=== PATIENT | male | born 1945 | race Caucasian/White ===

== ENCOUNTER 2024-06-15 09:42 | Emergency (ER) | payer MEDICARE, OTHER, SELFPAY ==
[2024-06-15 09:57] VITALS: BP 170/94
--- NOTE | 2024-06-15 11:22 | ED.MUSCINJ ---
HPI-Injury
General
Chief Complaint: Soft Tissue Injury
Source: patient
Exam Limitations: none
Time Seen by Provider: 06/15/24 11:10
Nursing documentation reviewed up to this point in time: agreed with
History of Present Illness-Injury
Initial Injury comments:
78-year-old male with no significant past medical history states he slipped in his bathroom last evening and braced himself with his right hand describing a FOOSH injury. Denies any other injury.
Past History
Past History
ED Past Medical History: None
ED Past Surgical History: Cholecystectomy and Tonsilectomy
Social History
Tobacco: Non-smoker
Personal:
Living: with family
Employment: Retired
Family History
Family History: Negative Diabetes, Hypertension or CAD
Review of Systems
Review of Systems
Allergies reviewed?: Yes
All Other Systems: ROS reviewed and negative except as documented in HPI and ROS
Respiratory: Denies trouble breathing
Cardiac: Denies chest pain
ABD/GI: Denies nausea
Musculoskeletal: Reports other (pain right wrist); Denies neck pain or back pain
Skin: Reports no symptoms
Neurological: Reports no symptoms
Musculoskeletal Injury Exam
Musculoskeletal Injury Exam
Right Wrist:
Pain with Movement?: Moderate
Tender to palpation?: Moderate
Soft tissue swelling?: Mild
External deformity and angulation?: None
Strain- Sprain- Tear (Connective tissue injury)?: Moderate
Joint instability?: No
Malalignment/deformity?: No
Range of motion: Limited
Distal skin color and temperature: normal-warm & good color
Capillary Refill: normal
Normal distal neurovascular exam?: Yes
Phy Exam
Physical Exam
Physical Exam:
PHYSICAL EXAMINATION:
General: no apparent distress, not acutely ill
Neuro: alert and oriented.
Psychiatric: well kept. interactive and cooperative
Musculoskeletal: Moves with ease
Skin: Warm, pink.
Injury Course
Orders/Labs/Results
Orders:
Orders
06/15/24 09:48
Wrist, Right 3 Views [CR Wrist - Right Min 3 Views] Urgent
Comment:
Reason For Exam: FOOSH injury
06/15/24 11:24
[place] Wrist Right-Tx ONCE
MDM/Problems Addressed
MDM/Problems Addressed:
78-year-old male with no significant past medical history states he slipped in his bathroom last evening and braced himself with his right hand describing a FOOSH injury. Denies any other injury.
X-ray right wrist reveals a an avulsion fracture of the cuboid
[place] splint applied
Referred to orthopedics
*Critical Care Note
Total Time (30-74mins, 75-104mins- exclusive of procedures): Not Applicable
ED Attending Note
-
Portions of this chart may have been created with voice recognition software.� Occasional wrong word or��sound alike� substitutions may have occurred due to the inherent limitations of voice recognition software.
Discharge Plan
Departure
Patient Disposition: Home (Routine Discharge)
Date of Disposition: 06/15/24
Time of Disposition: 11:39
Patient with high blood pressure during this ER visit?: No
Condition: Good
Discharge Problem:
Avulsion fracture of right wrist
Instructions: Wrist Fracture
Prescriptions:
No Action
tamsulosin 0.4 MG capsule
0.4 mg PO DAILY Qty: 30 0RF
finasteride 5 MG tablet
5 mg PO DAILY
cephalexin 500 MG capsule
500 mg PO QID Qty: 40 0RF
Rx Instructions:
continue for 10 days
naproxen 500 MG tablet
500 mg PO BID Qty: 30 0RF
cyclobenzaprine 10 MG tablet
5 mg PO TID Qty: 10 0RF
albuterol sulfate [Proventil HFA] 90 MCG/PUFF HFA aerosol inhaler
2 puff inhalation Q4HPRN PRN (Reason: shortness of breath, cough) Qty: 1 0RF
Referrals:
Travis Marquez MD [Active] - Next open appointment
UNKNOWN - PT DOES,NOT KNOW [Family Provider] -
Activity Restrictions/Additional Instructions:
As we discussed, while you are resting, you may open the splint and apply cold compress 20 minutes off and on today and tomorrow to minimize swelling.
Otherwise, keep the splint on until you see the orthopedic doctor for further instructions.
Tylenol or ibuprofen as needed for pain
Call the orthopedic doctors office tomorrow and make an appointment for next week
Interventions
Interventions:
*Risk Screen - Suicide Last Done: 06/15/24 09:57
*Neglect/Abuse Screening Last Done: 06/15/24 11:41
*Nursing Disposition Last Done: 06/15/24 12:04
ED-Musculoskeletal Assessment Last Done: 06/15/24 11:41
ED-Skin Assessment Last Done: 06/15/24 11:41
Discharge Date and Time
Discharge Date/Time: 06/15/24 12:05
Print Language: BULGARIAN
== END 2024-06-15 12:05 | disposition home or self-care (01) ==
LOC: EMR 09:42
PROVIDERS: EMERGENCY PHYSICIAN Emergency Medicine
DX: S62.101A Fracture of unspecified carpal bone, right wrist, initial encounter for closed fracture (principal); W01.0XXA Fall on same level from slipping, tripping and stumbling without subsequent striking against object, initial encounter; Y92.002 Bathroom of unspecified non-institutional (private) residence as the place of occurrence of the external cause; Z90.49 Acquired absence of other specified parts of digestive tract
CPT/HCPCS: 99283; 29125; 73110

== ENCOUNTER 2025-05-28 16:22 | Inpatient (IN) | payer MEDICARE, OTHER, SELFPAY ==
[2025-05-28 13:21] VITALS: BP 164/103
[2025-05-28 13:36] LABS: Hematocrit 44.6 % (39.0-52.0); Hemoglobin 16.2 g/dL (13.0-18.0); Mean Corp Hgb Conc. 36.3 g/dL (33.0-37.0); Mean Corpuscular Volume 88.3 fL (80.0-94.0); Nucleated Red Blood Cells % 0 % (-); Platelet Count 202 10^3/uL (130-400); Red Cell Dist. Width 12.4 % (11.5-14.5)
[2025-05-28 13:45] LABS: INR 1.05; PT 13.9 Sec (11.4-14.6)
[2025-05-28 13:46] LABS: APTT 27.9 Sec (23.4-35.0)
[2025-05-28 13:52] LABS: ALT (SGPT) 36 U/L (0-50); AST (SGOT) 34 U/L (17-59); Albumin 4.2 g/dl (3.5-5.0); Alkaline Phosphatase 93 U/L (38-126); Blood Urea Nitrogen 16 mg/dl (9-20); Calcium 9.0 mg/dl (8.4-10.2); Carbon Dioxide 26 mmol/L (22-30); Chloride 101 mmol/L (98-107); Glucose 101 mg/dl (70-99); Potassium 4.2 mmol/L (3.5-5.1); Sodium 133 mmol/L (135-145); Total Protein 6.9 g/dl (6.3-8.2); eGFR > 60.00
--- NOTE | 2025-05-28 14:45 | ED.GENMED ---
History of Present Illness
<Basil Scott PA-C - Last Filed: 05/28/25 18:45>
General
Chief Complaint: Fall
Time Seen by Provider: 05/28/25 14:32
History of Present Illness
History of Present Illness:
79-year-old male presents to the emergency department for evaluation of right hip pain and mechanical fall. He tripped in his driveway and landed on his buttocks. He states he did strike his head very gently but denies any headache at this time.
Does not take any anticoagulants or antiplatelets. Has any distal paresthesias; no chest pain or shortness of breath.
Past History
<Basil Scott PA-C - Last Filed: 05/28/25 18:45>
Past History
ED Past Medical History: None
ED Past Surgical History: Cholecystectomy and Tonsilectomy
Social History
Tobacco: Non-smoker
Personal:
Living: with family
Employment: Retired
Family History
Family History: Negative Diabetes, Hypertension or CAD
Review of Systems
<Basil Scott PA-C - Last Filed: 05/28/25 18:45>
Review of Systems
Allergies reviewed?: Yes
All Other Systems: ROS reviewed and negative except as documented in HPI and ROS
Phy Exam
<Basil Scott PA-C - Last Filed: 05/28/25 18:45>
Physical Exam
Physical Exam:
GEN: Well appearing, NAD, WDWN
HEENT: Normocephalic and atraumatic, oral mucosa moist, no scleral icterus
Cardiac: Regular rate
Lung: No respiratory distress, no tachypnea
MSK: Shortening and external rotation of the right lower extremity, strong right dorsalis pedis pulse, intact sensation
Skin: Good color, no pallor or jaundice, no rashes
Neuro: AO x3, cranial nerves II through XII grossly intact, moves all extremities freely
Psych: Calm, cooperative
Course
<Basil Scott PA-C - Last Filed: 05/28/25 18:45>
Orders/Labs/Results
Orders:
Orders
05/28/25 Lunch
Regular
At Your Request: Full Participation
05/28/25 13:20
Hip, Right 2-3 Views [CR Hip - RT w/wo Pel 2-3 Vw*] Urgent
Comment:
Reason For Exam: injury, pain
Include a pelvis x-ray?: Yes
05/28/25 13:28
Type+Screen Urgent
Complete Blood Count/With Diff Urgent
Comprehensive Metabolic Panel Urgent
PTT Urgent
Prothrombin Time Urgent
05/28/25 15:18
Admit/Transfer Patient As Directed
Co-Sign Provider:
Level of Care: Inpatient admission
Assign to:: Orthopedics
Physician / Group: hospitalist
Diagnosis: Right femur fracture
Reason for Hospitalization: Right femur fracture
Expected length of stay greater than two midnights?: Yes
ELOS- Estimated Length of Stay in days: 3
I certify the patient meets the requirements for IP care: Yes
PRN Pain Medication Management As Directed
May give lesser potent ordered pain med per pt: Yes
preference::
Protocol:: Medication orders for pain may be administered in a
manner that supports deferring to patient preference
when the pt is:
- Requesting an ordered lesser potent pain medication.
Least to most potent pain medications are defined
as: acetaminophen < NSAID < tramadol < opioids
(morphine, oxycodone, hydromorphone).
- Requesting a lesser dose of the same medication IF
ORDERED.
- Requesting a less intrusive route of administration
if both routes are prescribed by the provider (PO <
IV).
05/28/25 15:19
Code Status As Directed
Resuscitation Status: Full Code
05/28/25 17:50
Acetaminophen [Tylenol/Feverall] 650 mg RECTAL Q4HPRN PRN
Bisacodyl [Dulcolax] 10 mg RECTAL [id number] PRN
Docusate W/Senna [Senokot-S] 1 tablet PO BIDPRN PRN
HYDROmorphone [Dilaudid] 0.5 mg IV Q4HPRN PRN
Ibuprofen [Motrin] 400 mg PO Q6HPRN PRN
Lorazepam [Ativan] 0.5 mg IV Q8HPRN PRN
Polyethylene Glycol Powder [Miralax] 17 grams PO DAILYPRN PRN
05/28/25 17:50
Activity As Directed
Activity Level: Bedrest
Bladder Scan As Directed
Follow Bladder Retention/Intermittent Cath Algorithm?: Yes
PRN if no void in __ hours: 6
Frequency: Per Retention Algorithm
If Bladder Scan Result >: 400
then:: Straight cath
Compression Sleeves [Pneumatic Compression Sleeves] As Directed
Type: Knee high
Straight Cath As Directed
Frequency: Per Retention Algorithm
Additional Instructions: straight cath as needed per acute urinary retention algorithm for 24 hrs
Additional Instructions: for bladder scan greater than 400 mL
Vital Signs As Directed
Frequency: Per unit guidelines
DX Deep Vein Thrombosis Video Routine
05/29/25 06:00
Complete Blood Count/With Diff IN AM
Comprehensive Metabolic Panel IN AM
Abnormal Lab Results
05/28/25
13:28
MCH 32.1 H pg
(27.0-31.0)
Sodium 133 L mmol/L
(135-145)
Glucose 101 H mg/dl
(70-99)
05/28/25 13:28
05/28/25 13:28
Vital Signs
Initial and Last Documented VS:
Initial Vital Signs
Temp Pulse Resp BP Pulse Ox
98.1 F 79 22 164/103 100
05/28/25 13:21 05/28/25 13:21 05/28/25 13:21 05/28/25 13:21 05/28/25 13:21
Last Documented Vital Signs
Temp Pulse Resp BP Pulse Ox
98.5 F 91 18 169/97 99
05/28/25 18:00 05/28/25 18:00 05/28/25 18:00 05/28/25 18:00 05/28/25 18:00
<Reggie Talbert MD - Last Filed: 05/28/25 15:45>
Orders/Labs/Results
Orders:
Orders
05/28/25 Lunch
Regular
At Your Request: Full Participation
05/28/25 13:20
Hip, Right 2-3 Views [CR Hip - RT w/wo Pel 2-3 Vw*] Urgent
Comment:
Reason For Exam: injury, pain
Include a pelvis x-ray?: Yes
05/28/25 13:28
Type+Screen Urgent
Complete Blood Count/With Diff Urgent
Comprehensive Metabolic Panel Urgent
PTT Urgent
Prothrombin Time Urgent
05/28/25 15:18
Admit/Transfer Patient As Directed
Co-Sign Provider:
Level of Care: Inpatient admission
Assign to:: Orthopedics
Physician / Group: hospitalist
Diagnosis: Right femur fracture
Reason for Hospitalization: Right femur fracture
Expected length of stay greater than two midnights?: Yes
ELOS- Estimated Length of Stay in days: 3
I certify the patient meets the requirements for IP care: Yes
PRN Pain Medication Management As Directed
May give lesser potent ordered pain med per pt: Yes
preference::
Protocol:: Medication orders for pain may be administered in a
manner that supports deferring to patient preference
when the pt is:
- Requesting an ordered lesser potent pain medication.
Least to most potent pain medications are defined
as: acetaminophen < NSAID < tramadol < opioids
(morphine, oxycodone, hydromorphone).
- Requesting a lesser dose of the same medication IF
ORDERED.
- Requesting a less intrusive route of administration
if both routes are prescribed by the provider (PO <
IV).
05/28/25 15:19
Code Status As Directed
Resuscitation Status: Full Code
05/28/25 17:50
Acetaminophen [Tylenol/Feverall] 650 mg RECTAL Q4HPRN PRN
Bisacodyl [Dulcolax] 10 mg RECTAL [id number] PRN
Docusate W/Senna [Senokot-S] 1 tablet PO BIDPRN PRN
HYDROmorphone [Dilaudid] 0.5 mg IV Q4HPRN PRN
Ibuprofen [Motrin] 400 mg PO Q6HPRN PRN
Lorazepam [Ativan] 0.5 mg IV Q8HPRN PRN
Polyethylene Glycol Powder [Miralax] 17 grams PO DAILYPRN PRN
05/28/25 17:50
Activity As Directed
Activity Level: Bedrest
Bladder Scan As Directed
Follow Bladder Retention/Intermittent Cath Algorithm?: Yes
PRN if no void in __ hours: 6
Frequency: Per Retention Algorithm
If Bladder Scan Result >: 400
then:: Straight cath
Compression Sleeves [Pneumatic Compression Sleeves] As Directed
Type: Knee high
Straight Cath As Directed
Frequency: Per Retention Algorithm
Additional Instructions: straight cath as needed per acute urinary retention algorithm for 24 hrs
Additional Instructions: for bladder scan greater than 400 mL
Vital Signs As Directed
Frequency: Per unit guidelines
DX Deep Vein Thrombosis Video Routine
05/29/25 06:00
Complete Blood Count/With Diff IN AM
Comprehensive Metabolic Panel IN AM
Abnormal Lab Results
05/28/25
13:28
MCH 32.1 H pg
(27.0-31.0)
Sodium 133 L mmol/L
(135-145)
Glucose 101 H mg/dl
(70-99)
05/28/25 13:28
05/28/25 13:28
Vital Signs
Initial and Last Documented VS:
Initial Vital Signs
Temp Pulse Resp BP Pulse Ox
98.1 F 79 22 164/103 100
05/28/25 13:21 05/28/25 13:21 05/28/25 13:21 05/28/25 13:21 05/28/25 13:21
Last Documented Vital Signs
Temp Pulse Resp BP Pulse Ox
98.5 F 91 18 169/97 99
05/28/25 18:00 05/28/25 18:00 05/28/25 18:00 05/28/25 18:00 05/28/25 18:00
<Basil Scott PA-C - Last Filed: 05/28/25 18:45>
MDM/Problems Addressed
MDM/Problems Addressed:
Patient readmitted to the hospitalist service with orthopedic consultation for intervention on the right hip fracture
<Basil Scott PA-C - Last Filed: 05/28/25 18:45>
*Pulse Oximetry
SaO2: 97
Oxygen Mode of Delivery: Room air
Patient hypoxic: no
*Critical Care Note
Total Time (30-74mins, 75-104mins- exclusive of procedures): Not Applicable
ED Attending Note
<Basil Scott PA-C - Last Filed: 05/28/25 18:45>
-
Portions of this chart may have been created with voice recognition software.� Occasional wrong word or��sound alike� substitutions may have occurred due to the inherent limitations of voice recognition software.
<Reggie Talbert MD - Last Filed: 05/28/25 15:45>
ED Attending Note
Patient seen and examined by attending physician: Yes
ED Attending Note:
Patient presents to ED secondary to persistent right hip pain, after fall on his driveway this afternoon. Patient states that he was closing his trunk door on the street, when he lost balance, and fell backwards, landing on his right hip.
Secondary to pain, patient was unable to stand up. Denies any other injuries from the fall. Denies loss of sensation or weakness. Patient does not take any blood thinning medication. In fact, patient states that he has not seen his primary care
physician for some time. Denies recent illness.
Physical Exam
General: mild painful distress, not acutely ill. afebrile
Head: nc/at. eomi
Neck: supple. normal range of motion.
Heart: s1/s2 regular rate and rhythm
Lungs: no acute respiratory distress. clear bilaterally
Abdomen: normal bowel sounds. not tender.
Neuro: alert and oriented x 3. no focal neurological deficits
Skin: no rash
Psychiatric: well kept. interactive and cooperative
Extremities: diffuse right hip tenderness, along with external rotation.
History, exam, and x-ray consistent with right hip fracture. Patient will be admitted for further evaluation and treatment. At this time, patient does not wish to receive any pain medication. Patient remains neurovascularly intact.
On-call orthopedic surgery () notified via [place] text.
Discharge Plan
Departure
Patient Disposition: Admit
Date of Disposition: 05/28/25
Time of Disposition: 14:46
Admit to: Med/Surg
Presentation/result/management discussed w/ accepting MD/DO: Hospitalist
Discharge Problem:
Closed fracture of neck of right femur
Interventions
Interventions:
*Risk Screen - Suicide Last Done: 05/28/25 13:16
*General Assessment Last Done: 05/28/25 13:16
*Neglect/Abuse Screening Last Done: 05/28/25 13:16
*ED COVID-19 Vaccine History Last Done: 05/28/25 13:16
*ED Influenza Vaccine History Last Done: 05/28/25 13:16
[facility] Fall Risk Assessment Tool Last Done: 05/28/25 13:19
*Nursing Disposition Last Done: 05/28/25 17:45
ED-Musculoskeletal Assessment Last Done: 05/28/25 13:18
ED- Neurological Assessment Last Done: 05/28/25 13:18
ED-Skin Assessment Last Done: 05/28/25 13:18
Discharge Date and Time
Discharge Date/Time: 05/28/25 17:45
[2025-05-28 14:57] VITALS: BP 159/88
--- NOTE | 2025-05-28 15:04 | W.PN.UPDATE ---
Update Note
Progress Note Update
This note serves as an addendum to the H&P by machine feeder raw stock MARY CARMEN�
[id number]
HPI�
79M Non smoker HX BPH, cholecystectomy and Tonsilectomysee at ER
- for evaluation of right hip pain s/p mechanical fall
- tripped in his driveway and landed on his buttocks.
- he did strike his head very gently but denies any headache at this time.
- Does not take any anticoagulants or antiplatelets.
- no chest pain or shortness of breath.
PHX: NO DM, NO IA
ROS
change of BW habit
Non compliance Finasteride
Relevant VS
Vital Signs
Temp Pulse Resp BP Pulse Ox
98.1 F 72 20 164/103 97
05/28/25 13:21 05/28/25 14:00 05/28/25 14:00 05/28/25 13:21 05/28/25 14:47
PE
Gen: anxious
HEENT: anicteric
Neck: supple
Lungs:CTA
Cor: RRR
Abdomen:�centrla obesity , benign exam ( soft , NT , NG , NRT )
EYEGLASS FRAMES POLISHER: AAO3, NFND
MS: shortening and external rotation of the right lower extremity, strong right dorsalis pedis pulse, intact sensation
Psych: anxious
Relevant Data
05/28/25
13:28
WBC 5.4
Hgb 16.2
Plt Count 202
INR 1.05
Sodium 133 L
BUN 16
Creatinine 0.9
eGFR > 60.00
Rt Hip XR:
fracture through the right femoral neck.
Distal fragment is displaced superiorly and laterally.
The femoral head remains aligned with the acetabulum.
The left hip appears aligned.
There are mild degenerative changes involving both hips and the lower lumbar spine.
NO PRIOR Last hospitalist admission:
ASSESSMENT & PLAN
Pending Rx reconciliation
Acute closed Fx Rt hip NoF
- Low periop risk
- Benefits of ORIF outweigh the periop risk thus acceptable to proceed for OR
- Fx set protocol - PRN Analgesia, PRN anti emetics, BW regime
- Ortho consulted- probably OR tomorrow
- NPO after MN to night
HX BPH
- Non compliance with Finasteride
- Balder scan protocol
Report change of BW habit
- OP colonoscopy
Anxious
- Short course of IV Ativan 0 .5mg q8 PRN for anxiety for 48 Hrs periop period and hold for excessive sedation
DVT Px: SCD
Full code
IP MS
--- NOTE | 2025-05-28 15:22 | HPS.HSE ---
Family Physician
-
Family Physician: * NONE
Chief Complaint
-
Fall
History of Present Illness
79-year-old male with history of BPH presents after a mechanical fall. He tripped in his driveway and landed on his buttocks. He states he did strike his head very gently but denies any headache at this time. Does not take any anticoagulants or
antiplatelets. Has any distal paresthesias; no chest pain or shortness of breath.
Medical History
Past Medical History
Past Medical History: Reports None
Past Surgical History: Reports None
Social History
Tobacco: Non-smoker
Alcohol: None
Drug: None
Personal:
Living: With Family
Employment: Retired
Family History
Family History: Not pertinent
Allergies / Home Medications
Allergies reflects when Allergies were last updated in [employer]
Home Medications with original date entered in [employer]
Allergy/Medication List:
Allergies
Allergy/AdvReac Type Severity Reaction Status Date / Time
No Known Allergies Allergy Verified 06/15/24 09:58
Home Medications
No Meds [No Current Medications] 05/28/25
Review of Systems
-
History Source: Patient
A 12 point ROS was completed and negative except as noted: Yes
Physical Exam
Vital Signs
Vital Signs
Temp Pulse Resp BP Pulse Ox
98.1 F 72 20 164/103 97
05/28/25 13:21 05/28/25 14:00 05/28/25 14:00 05/28/25 13:21 05/28/25 14:47
Physical Exam
General: Conversant
HEENT: NormoCephalic, Anicteric and Moist mucous membranes
Respiratory: Clear
Cardiac: S1/S2 and Regular Rhythm
GI: Soft, Non Tender and Non Distended
Musculoskeletal: Other (Right lower extremity pain with any movement, right leg slightly shorter than left, no obvious injury)
Skin: Warm and Dry
Neuro: AO x 3
Hematologic/Lymphatic: No Lymphadenopathy
Psych: Anxious
Laboratory Results
-
05/28/25 13:28
05/28/25 13:28
Laboratory Results
PT 13.9 Sec (11.4-14.6) 05/28/25 13:28
INR 1.05 05/28/25 13:28
APTT 27.9 Sec (23.4-35.0) 05/28/25 13:28
Total Bilirubin 1.3 mg/dl (0.2-1.3) 05/28/25 13:28
AST 34 U/L (17-59) 05/28/25 13:28
ALT 36 U/L (0-50) 05/28/25 13:28
Alkaline Phosphatase 93 U/L (38-126) 05/28/25 13:28
Data Reviewed
-
Diagnostic Radiology: Report Reviewed by me and Discussed with Physician
Lab Data: Labs Reviewed by me and Discussed with Physician
Impression/Plan
-
IMPRESSION:
Mechanical fall
Right femoral neck fracture
History of BPH
PLAN:
Mechanical fall
Right femoral neck fracture
Patient is hemodynamically stable
Consult orthopedics
Plan for R hip arthroplasty tomorrow
Pain control
Check bladder scan
No neurological deficits
PT/OT post surgery
NPO after midnight
History of BPH
Noncompliant with finasteride
Check bladder scan
Monitor urine output
Anxiety
Patient is very anxious appearing
Add Ativan 0.5 mg IV Q8 for 48 hours.
Full code
SCD
regular diet
--- NOTE | 2025-05-28 15:30 | W.PN.UPDATE ---
Update Note
Progress Note Update
79 yo male s/p fall in his driveway.
Right hip femoral neck displaced fracture
Will need surgical treatment
Consent obtained and left at OR front office agent. OR notified.
NPO after midnight
Full consult dictated [id number]
[2025-05-28 16:00] VITALS: BP 164/93
[2025-05-28 17:00] VITALS: BP 151/92
--- NOTE | 2025-05-28 17:45 | EDCM ---
Reviewed chart, met with pt and his bedside in ED. Lives with in 2 story home, 4 DOTTY, has first floor half bath, full flight to second floor bedroom and full bath.
Independent in ADLs, personal care and ambulation at baseline. No assistive devices, no DME in home.
Confirms prescription coverage.
Hx VN, unsure of agency, no hx SNF
Does not currently have PCP, doesn't go to doctors. has PCP, hoping they can follow him.
Is [place], [facility].
Is willing to go to OP therapy at discharge but does not drive. They do not have any local family.
Pharmacy: [facility]
Anticipate discharge home, CM will continue to follow for all discharge planning needs.
[2025-05-28 18:00] VITALS: BP 169/97
--- NOTE | 2025-05-28 18:50 | PTCARENOTE ---
Received pt from ED via stretcher, pulled over to bed. R hip pain, R leg shortened and externally rotated. Pt c/o pain w/ movement 10/10, tolerable w/ rest, denies pain meds. Educated pt on pain meds available. Regular diet ordered, will be NPO at
[place] for surgery tomorrow. Pt is aware. VSS. Admission completed. Report given to next RN.
[2025-05-28] MEDS: TUMS CHEWABLE TABLET 200 MG PO (22:51)
[2025-05-28 23:29] VITALS: BP 163/87
[2025-05-29 07:51] VITALS: BP 177/108
--- NOTE | 2025-05-29 07:54 | W.PN.UPDATE ---
Update Note
Progress Note Update
Patient has right femoral neck fracture which will be fixed later today. He will be n.p.o., Elisha on-call to the operating room, antibiotics/TXA irrigation to OR.
[2025-05-29 08:29] LABS: Hematocrit 44.6 % (39.0-52.0); Hemoglobin 16.5 g/dL (13.0-18.0); Mean Corp Hgb Conc. 37.0 g/dL (33.0-37.0); Mean Corpuscular Volume 86.8 fL (80.0-94.0); Nucleated Red Blood Cells % 0 % (-); Platelet Count 217 10^3/uL (130-400); Red Cell Dist. Width 12.2 % (11.5-14.5)
[2025-05-29 08:47] LABS: ALT (SGPT) 35 U/L (0-50); AST (SGOT) 32 U/L (17-59); Albumin 4.1 g/dl (3.5-5.0); Alkaline Phosphatase 96 U/L (38-126); Blood Urea Nitrogen 15 mg/dl (9-20); Calcium 9.6 mg/dl (8.4-10.2); Carbon Dioxide 28 mmol/L (22-30); Chloride 104 mmol/L (98-107); Estimated Creatinine Clearance 84 ml/min; Glucose 125 mg/dl (70-99); Potassium 4.1 mmol/L (3.5-5.1); Sodium 136 mmol/L (135-145); Total Protein 6.9 g/dl (6.3-8.2); eGFR > 60.00
--- NOTE | 2025-05-29 09:22 | W.PN.HOSP.TC ---
Addendum entered and electronically signed by Zackary Amin DO 05/29/25 14:22:
CDI: Mild hyponatremia present, no clinical significance
Original Note:
Today's Communication/Plan
-
- f/u orthopedic recommendations
- tentative OR 05/30
- PT/OT for possible vertigo
Assessment / Plan
Assessment / Plan
In summary, 79 yo M PMH BPH presenting after mechanical fall and found to have right femoral neck fracture
Right femoral neck fracture
- mechanical fall, and reports rose-episodic dizziness, he specifies that it is 'room-spinning'
- hx of fall 1 year ago with wrist fracture for similar reason - this is suspicious for vertigo
- he otherwise denies any other symptoms
- he experiences pain with R leg movement, and has no focal neurological deficits
- VSS
- orthopedics consulted with plans for arthroplasty tomorrow, 05/30
- pain control available but review suggests that patient has not taken anything
- IVF NS 100cc/hr initiated in interim
Concern for Vertigo
- patient reported room-spinning dizziness before mechanical fall
- PT/OT consulted
History of BPH
- reportedly noncompliant with finasteride
- bladder scan/straight cath ordered
Full code
SCD
regular diet
Anticipated Discharge: > 48 hours
Subjective/Interval History
-
Date of Service: May 29, 2025
79 yo M PMH BPH presents after mechanical fall
tripped on driveway.
No antiplatelets or anticoagulants
He reports that he felt dizzy/room-spinning and then fell backwards while closing the trunk of his jeep.
he says that he felt dizzy about 1 year ago and had a fall that resulted in wrist fracture.
He does not regularly see a PCP. He reports that he has BPH with urinary stream weakness etc, and he feels that has resulted in changes in his stooling habits. He denies hematochezia/melena and denies ever having had a colonoscpy.
He says that he knows he should follow-up with a doctor and has been meaning to and then he fell.
This morning, his leg is in pain and unable to move it as easily, but otherwise has no focal neurological deficits. He denies respiratory distress and is able to move feet.
Objective Data
-
Labs:
Laboratory Results
05/29/25
08:03
WBC 10.6
Hgb 16.5
Hct 44.6
Plt Count 217
Sodium 136
Potassium 4.1
Chloride 104
Carbon Dioxide 28
BUN 15
Creatinine 0.9
Glucose 125 H
Calcium 9.6
Total Bilirubin 2.5 H D
AST 32
ALT 35
Alkaline Phosphatase 96
hip x-ray Right 05/28/2025
IMPRESSION:
There is a right femoral neck fracture
Vital Signs:
Vital Signs
Temp Pulse Resp BP Pulse Ox
99.6 F 96 18 177/108 97
05/29/25 07:51 05/29/25 07:51 05/29/25 07:51 05/29/25 07:51 05/29/25 07:51
BP elevated
I&O
05/28/25 05/29/25 05/30/25
06:59 06:59 06:59
Output Total 450 / 450
Balance -450 / -450
Review of Systems
-
History Source: Patient
Constitutional: Reports No Symptoms
EENT: Reports No Symptoms Reported
Respiratory: Reports No Symptoms
Cardiac: Reports No Symptoms
Abdomen/GI: Reports No Symptoms
Genitourinary: Reports Difficulty Voiding
Musculoskeletal: Reports Joint Pain (R hip)
Skin: Reports No Symptoms
Neuro: Reports Dizzy
Physical Exam
-
General: Conversant
HEENT: Normocephalic
Respiratory: Clear to Auscultation
Cardiac: Other (no murmurs on my exam)
GI: Soft, Nontender and Normal Bowel Sounds
Musculoskeletal: No Edema and Other (pain in R hip, but peripheral pulses appreciable)
Neuro: AO x 3 and Other (unable to move R leg due to pain, but able to plantar/dorsiflex right foot; otherwise no other neurological deficits. )
Psych: Calm
--- NOTE | 2025-05-29 09:43 | CM ---
Chart reviewed and patient with femur fracture, npo for OR today, patient wants home but has no PCP to sign orders in for visiting nurses in home. Will await PT/OT recommendations to assist with discharge planning.
Plan; Patient wants home but no PCP for visiting nurses.
--- NOTE | 2025-05-29 12:11 | W.PN.UPDATE ---
Update Note
Progress Note Update
Unfortunately, there is no OR availability today for his hip surgery today.
We will postpone surgery for tomorrow with Dr. Back
We can resume diet today and NPO after midnight
[2025-05-29] MEDS: NSS 1000 IV (13:22)
--- NOTE | 2025-05-29 14:15 | PN.CDI ---
CDI
- -
CDI:
Physician Documentation Request
Admit Date: 05/28/25 16:22
Dear Doctor Brennan/Resident ,
Please review the following and provide your response in the progress notes.
Clinical Indicators:
Pt admitted with right femoral neck fracture
Sodium labs below/Pt did get IVFs
Laboratory Tests
05/28/25
13:28
Sodium 133 L
Based on the above, could you clarify in the progress notes, the appropriate diagnosis, if significant, that supports the above abnormalities and additional evaluation, monitoring and/or treatment rendered:
Hyponatremia
Abnormal lab Value
Other ( please specify)
Use of terms such as suspected, likely, concern for, or probable (associated with a specific diagnosis that is being evaluated, monitored, or treated as if it exists) are acceptable and can be coded in the inpatient setting, when documented at the
time of discharge.
Thank you,
Sharon Vieira RN
CDI Specialist
Jay Em Text
Please use your independent medical judgment in providing your response.
[2025-05-29] MEDS: FLOMAX 0.4 MG PO (14:47)
--- NOTE | 2025-05-29 14:50 | PTCARENOTE ---
Pt with low urine output, bladder scanned for 800mL. Pt refusing a straight cath, educated pt on the risks of a not addressing this. Dr Amin notified, at bedside to discuss w/ pt. Flomax started. Will wait 1 hour and readdress.
[2025-05-29 15:37] VITALS: BP 164/101
--- NOTE | 2025-05-29 16:22 | PTCARENOTE ---
Bladder scanned pt for 1750mL. Attempted straight cath, pain and resistance met, unable to advance, catheter removed, bloody discharge resulted. Dr Amin aware, to place Urology consult.
--- NOTE | 2025-05-29 17:36 | W.PN.URO.CBU ---
Today's Communication / Plan
-
leave lynn may do trial of void starting the day after surgery
Assessment / Plan
-
difficult voiding retention
Diagnosis
-
Date of Service: May 29, 2025
-
Patient Diagnosis:
acute urinary retention in pt h/o bph difficult voiding
Post Op Day:
Subjective
-
cannot void
Objective
-
Vital Signs
Temp Pulse Resp BP Pulse Ox
97.8 F 94 18 164/101 96
05/29/25 15:37 05/29/25 15:37 05/29/25 15:37 05/29/25 15:37 05/29/25 15:37
Intake and Output
05/28/25 05/29/25 05/30/25
06:59 06:59 06:59
Intake Total 240 / 240
Output Total 450 / 450
Balance -450 / -450 240 / 240
Intake:
Oral fluids 240 / 240
Output:
Urine, Voided 450 / 450
Other:
How many times incontinent 1
SATURATED amount urine
Laboratory Results
05/29/25 08:03
05/29/25 08:03
Review of Systems
-
: Difficulty Voiding
Physical Exam
-
General - well developed, well nourished, no acute distress
Chest - clear bilaterally
Abdomen - soft, non-tender, positive bowel sounds, no CVAT, no incisional pain or distention
Genitalia - normal
Rectal - normal
Skin - warm & dry with no rash
Neuro - AOx3, no motor deficits
Extremities - no clubbing, no cyanosis, no edema
Incision - clean, dry
Dressing - clean, dry, intact
Counseling
-
keep lynn until day after surgery
Care Review
Data Reviewed
Discussed with: Nursing and Family
[2025-05-29] MEDS: LIDOCAINE URO-JET 2% 1 SYRINGE TOPICAL (17:51)
[2025-05-29] MEDS: ZOFRAN 4 MG IV (19:22)
[2025-05-29] MEDS: NSS (PRESERVATIVE FREE) 0.25 ML IV (20:49)
[2025-05-29] MEDS: ATIVAN 0.5 MG IV (20:50)
[2025-05-29 23:00] VITALS: BP 174/91
[2025-05-30] VITALS (10 sets, daily range): BP systolic 113–151; BP diastolic 59–118
[2025-05-30] MEDS: NSS 1000 IV ×2 (03:27→18:43)
--- NOTE | 2025-05-30 07:16 | W.PN.UPDATE ---
Update Note
Progress Note Update
Unfortunately operating room was too busy yesterday so right hip could not be surgically fixed. He is now on the OR schedule for later today. He will remain n.p.o. Ancef, antibiotics/TXA irrigation 2 OR.
[2025-05-30 07:22] LABS: Hematocrit 44.1 % (39.0-52.0); Hemoglobin 16.1 g/dL (13.0-18.0); Mean Corp Hgb Conc. 36.5 g/dL (33.0-37.0); Mean Corpuscular Volume 88.2 fL (80.0-94.0); Platelet Count 223 10^3/uL (130-400); Red Cell Dist. Width 12.6 % (11.5-14.5)
--- NOTE | 2025-05-30 07:27 | W.PN.HOSP.TC ---
Today's Communication/Plan
-
OR tomorrow
trial void lynn after surgery
Assessment / Plan
Assessment / Plan
In summary, 79 yo M PMH BPH presenting after mechanical fall and found to have right femoral neck fracture
Right femoral neck fracture
- mechanical fall, and reports rose-episodic dizziness, he specifies that it is 'room-spinning'
- hx of fall 1 year ago with wrist fracture for similar reason - this is suspicious for vertigo
- he otherwise denies any other symptoms
- he experiences pain with R leg movement, and has no focal neurological deficits
- VSS
- orthopedics consulted with plans for arthroplasty today, 05/30
- pain control available
- IVF NS 100cc/hr
Concern for Vertigo
- patient reported room-spinning dizziness before mechanical fall
- PT/OT consulted
History of BPH
- reportedly noncompliant with finasteride
- urology consulted after difficult lynn, who then placed lynn with trial void following surgery
- tamsulosin ordered once.
CDI: abnormal lab value
Na+ 133, likely related to lab error because repeat Na+ 136 at 08:03, 05/29, which is prior to administration of fluids at 13:22, 05/29
Full code
SCD
NPO
Anticipated Discharge: > 48 hours
Subjective/Interval History
-
Date of Service: May 30, 2025
interval events, urinary retention difficult lynn, required urology consult
started NS 100cc/hr yesterday
Objective Data
-
Labs:
Laboratory Results
05/30/25
06:36
WBC 12.2 H
Hgb 16.1
Hct 44.1
Plt Count 223
Sodium Pending
Potassium Pending
Chloride Pending
Carbon Dioxide Pending
BUN Pending
Creatinine Pending
Glucose Pending
Calcium Pending
Cr 1.1
K 4.6
WBC 12.2 from 10.6
Hgb stable
lynn in place, bloody output
Vital Signs:
Vital Signs
Temp Pulse Resp BP Pulse Ox
98.9 F 103 16 174/91 95
05/29/25 23:00 05/29/25 23:00 05/29/25 23:00 05/29/25 23:00 05/29/25 23:00
I&O
05/29/25 05/30/25 05/31/25
06:59 06:59 06:59
Intake Total 240 / 240
Output Total 450 / 450 1650 / 1650
Balance -450 / -450 -1410 / -1410
Review of Systems
-
History Source: Patient
Constitutional: Reports No Symptoms
EENT: Reports No Symptoms Reported
Respiratory: Reports No Symptoms
Cardiac: Reports No Symptoms
Abdomen/GI: Reports No Symptoms
Genitourinary: Reports Difficulty Voiding and Bleeding
Musculoskeletal: Reports Joint Pain (R hip)
Skin: Reports No Symptoms
Neuro: Reports Dizzy
Physical Exam
-
General: Conversant
HEENT: Normocephalic
Respiratory: Clear to Auscultation
Cardiac: Other (no murmurs on my exam)
GI: Soft, Nontender and Normal Bowel Sounds
Genito-urinary: Bloody Urine and Lynn
Musculoskeletal: No Edema and Other (pain in R hip, but peripheral pulses appreciable)
Neuro: Awake, Alert, Nonfocal/Grossly Intact and Other (unable to move R leg due to pain, but able to plantar/dorsiflex right foot; otherwise no other neurological deficits. )
Psych: Calm
[2025-05-30 08:02] LABS: Blood Urea Nitrogen 23 mg/dl (9-20); Calcium 8.8 mg/dl (8.4-10.2); Carbon Dioxide 27 mmol/L (22-30); Chloride 103 mmol/L (98-107); Estimated Creatinine Clearance 68 ml/min; Glucose 131 mg/dl (70-99); Potassium 4.6 mmol/L (3.5-5.1); Sodium 136 mmol/L (135-145); eGFR > 60.00
[2025-05-30] MEDS: FLOMAX 0.4 MG PO (09:20)
--- NOTE | 2025-05-30 09:43 | CM ---
Addendum entered by Robina Singh 05/30/25 10:08:
food and beverage assistant manager met with patient and spouse this am and plan is for skilled placement options reviewed and patient's spouse is agreeable to [facility], referrals sent [facility], spouse does not drive, needs to be
able to walk to facility.
Original Note:
Chart reviewed and patient is scheduled for OR today, and patient was hoping to go home with visiting nurses however patient does not have a PCP and therefore no one to sign home care orders. Reviewed possible rehab options with patient, will await
PT/OT evaluations.
Plan Await PT/OT recommendations after surgery.
--- NOTE | 2025-05-30 12:37 | W.PN.URO.CBU ---
Today's Communication / Plan
-
voiding trial not today but once ambulatory
Assessment / Plan
-
difficult lynn voiding retention mild heatureia as expected leave lynn today remove once ambulatory
Diagnosis
-
Date of Service: May 30, 2025
-
Patient Diagnosis:
Post Op Day:
Patient Diagnosis:
acute urinary retention in pt h/o bph difficult voiding
Post Op Day:
Subjective
-
mild hematuria fley comfortable for now
Objective
-
Vital Signs
Temp Pulse Resp BP Pulse Ox
99.3 F 76 16 130/82 96
05/30/25 07:40 05/30/25 07:40 05/30/25 07:40 05/30/25 07:40 05/30/25 07:40
Intake and Output
05/29/25 05/30/25 05/31/25
06:59 06:59 06:59
Intake Total 240 / 240
Output Total 450 / 450 0 / 1650
Balance -450 / -450 -1410 / -1410
Intake:
Oral fluids 240 / 240
Output:
Urine, Lynn 0 / 1650
Urine, Voided 450 / 450
Other:
How many times incontinent 1
SATURATED amount urine
Laboratory Results
05/30/25 06:36
05/30/25 06:36
Review of Systems
-
: Difficulty Voiding and Bleeding
Physical Exam
-
General - well developed, well nourished, no acute distress
Chest - clear bilaterally
Abdomen - soft, non-tender, positive bowel sounds, no CVAT, no incisional pain or distention
Genitalia - normal
Rectal - normal
Skin - warm & dry with no rash
Neuro - AOx3, no motor deficits
Extremities - no clubbing, no cyanosis, no edema
Incision - clean, dry
Dressing - clean, dry, intact
Counseling
-
void trialonce ambulating
Care Review
Data Reviewed
Discussed with: Nursing and Family
--- NOTE | 2025-05-30 17:33 | W.IMMPOSTOP ---
Surgical Immed Post Op Note
-
Primary Surgeon: Stephan Back MD
Assisting Surgeon: Daphne Herman PA-C
Pre-op Diagnosis: right femoral neck fracture
Post-op Diagnosis: right femoral neck fracture
Procedure Performed: right hip hemiarthroplasty
Anesthesia Type: spinal
Specimen / Cultures: none
Estimated Blood Loss: 25mL
Complications: none apparent
Operative Findings: right femoral neck fracture
Implants: [employer] size 13 stem, +0 head, 53mm bipolar shell
Operative dictation #: [id number]
--- NOTE | 2025-05-30 19:33 | PTCARENOTE ---
Addendum entered by Eun Lorenzana RN 05/30/25 19:35:
Pt returned to floor with right hip primaseal c/d/i. Abductor pillow in place. Ice pack applied to right hip. Edwards with bloody output. Knee high scds on pt. Bed locked and in lowest position. Care ongoing.
Original Note:
Pt returned to floor with right hip primaseal c/d/i. Ice pack applied to right hip. Edwards with bloody output. Knee high scds on pt ,.
[2025-05-30] MEDS: COLACE PO (20:16)
[2025-05-30] MEDS: ANCEF 5 IV (21:33)
[2025-05-31 02:47] VITALS: BP 152/96
--- NOTE | 2025-05-31 04:06 | PTCARENOTE ---
pt educated on importance and risks of not wearing SCDs. pt educated on importance of regular turning and repositioning. Pt refusing to wear SCDS and be repositioned. Pt also educated on importance of early ambulation post op. Pt refusing to comply
with care plan. Care ongoing.
[2025-05-31] MEDS: NSS IV (05:23)
[2025-05-31] MEDS: NSS 1000 IV (05:26)
[2025-05-31] MEDS: ANCEF 5 IV (05:27)
[2025-05-31] MEDS: DILAUDID 0.5 MG IV (05:51)
[2025-05-31 07:15] VITALS: BP 143/83
[2025-05-31 07:25] LABS: Hematocrit 40.4 % (39.0-52.0); Hemoglobin 14.6 g/dL (13.0-18.0); Mean Corp Hgb Conc. 36.1 g/dL (33.0-37.0); Mean Corpuscular Volume 89.0 fL (80.0-94.0); Platelet Count 202 10^3/uL (130-400); Red Cell Dist. Width 12.5 % (11.5-14.5)
--- NOTE | 2025-05-31 07:28 | W.PN.HOSP.TC ---
Today's Communication/Plan
-
plan for discharge tomorrow to [facility]
CM aware
Assessment / Plan
Assessment / Plan
In summary, 79 yo M PMH BPH presenting after mechanical fall and found to have right femoral neck fracture s/p hemiarthroplasty
Right femoral neck fracture s/p hemiarthroplasty
- mechanical fall, and reports rose-episodic dizziness, he specifies that it is 'room-spinning'
- hx of fall 1 year ago with wrist fracture for similar reason - this is suspicious for vertigo
- he otherwise denies any other symptoms
- he experiences pain with R leg movement, and has no focal neurological deficits
- VSS
- orthopedics performed arthroplasty, 05/30
- pain control available
- PT/OT
- pain regimen from hydromorphone to oxycodone in preparation for discharge tomorrow based on PT/OT evaluation, 05/31
Concern for Vertigo
- patient reported room-spinning dizziness before mechanical fall
- PT/OT consulted
History of BPH
- reportedly noncompliant with finasteride
- urology consulted after difficult lynn, who then placed lynn which is now removed
- tamsulosin ordered once.
- lynn removed this morning, trial void then discharge planned for tomorrow, 05/31
- urology recommended bowel regimen
CDI: abnormal lab value
Na+ 133, likely related to lab error because repeat Na+ 136 at 08:03, 05/29, which is prior to administration of fluids at 13:22, 05/29
Na+ 137 this morning
Full code
SCD
NPO
Anticipated Discharge: Today
Subjective/Interval History
-
Date of Service: May 31, 2025
reports sorness near site but well
lynn removed this AM
dispo discharge tdoay
Objective Data
-
Labs:
Laboratory Results
05/31/25
06:48
WBC 10.9 H
Hgb 14.6
Hct 40.4
Plt Count 202
Sodium Pending
Potassium Pending
Chloride Pending
Carbon Dioxide Pending
BUN Pending
Creatinine Pending
Glucose Pending
Calcium Pending
Hgb 16.1 -> 14.6
WBC 12.2 -> 10.9
Plt 223 -> 202
Cr 0.9
Vital Signs:
Vital Signs
Temp Pulse Resp BP Pulse Ox
99.5 F 97 18 152/96 97
05/31/25 02:47 05/31/25 02:47 05/31/25 02:47 05/31/25 02:47 05/31/25 02:47
I&O
05/30/25 05/31/25 06/01/25
06:59 06:59 06:59
Intake Total 240 / 240 480 / 480 1680 / 1680
Output Total 1650 / 1650 525 / 525
Balance -1410 / -1410 -45 / -45 1680 / 1680
Review of Systems
-
History Source: Patient
Constitutional: Reports No Symptoms
EENT: Reports No Symptoms Reported
Respiratory: Reports No Symptoms
Cardiac: Reports No Symptoms
Abdomen/GI: Reports No Symptoms
Genitourinary: Reports Difficulty Voiding and Bleeding
Musculoskeletal: Reports Joint Pain (R hip soreness)
Skin: Reports No Symptoms
Neuro: Reports Dizzy
Physical Exam
-
General: Conversant
HEENT: Normocephalic
Respiratory: Clear to Auscultation
Cardiac: Other (no murmurs on my exam)
GI: Soft, Nontender and Normal Bowel Sounds
Genito-urinary: Bloody Urine
Musculoskeletal: No Edema and Other (pain in R hip, but peripheral pulses appreciable)
Neuro: Awake, Alert, Nonfocal/Grossly Intact and Other (unable to move R leg due to pain, but able to plantar/dorsiflex right foot; otherwise no other neurological deficits. )
Psych: Calm
[2025-05-31 07:45] LABS: Blood Urea Nitrogen 21 mg/dl (9-20); Calcium 8.5 mg/dl (8.4-10.2); Carbon Dioxide 25 mmol/L (22-30); Chloride 105 mmol/L (98-107); Estimated Creatinine Clearance 84 ml/min; Glucose 121 mg/dl (70-99); Potassium 4.3 mmol/L (3.5-5.1); Sodium 137 mmol/L (135-145); eGFR > 60.00
--- NOTE | 2025-05-31 08:37 | CM ---
Addendum entered by Robina Singh 05/31/25 12:31:
Patient does not have a PCP and therefore no one to sign home care orders, [facility] including provided to patient.
Plan; Skilled placement at [facility].
Addendum entered by Robina Singh 05/31/25 12:04:
soda fountain manager will await updated PT/OT notes, referral was sent to [facility] and they have a bed today and will have a bed on Tuesday or Tuesday, comp field case manager will need to reach out to Robina in admissions at [facility]. Patient would
prefer to return to home home when stable.
Plan; home v's skilled.
Original Note:
Chart reviewed and plan is for skilled placement in [place], patient has selected [facility], private room if possible, patient needs a facility that his can walk to.
Plan; Skilled placement at [facility] when stable.
--- NOTE | 2025-05-31 08:57 | W.PN.ORTHO ---
Today's Communication / Plan
-
Appreciate the primary team, continue treatment
Dispo per CM, appreciate their efforts
Continue WBAT RLE on walker/assistance
PT/OT, THPs x 6 weeks
ASA 325mg daily x 4 weeks for DVT ppx
Dressing to remain 7-10 days
Pain control
Outpatient Ortho follow-up in 4 weeks for xrays and exam
Ortho to follow along for now
Assessment
.
Distal Motor Intact: Yes
Dressing:
Clean, dry and intact. Primaseal in place right hip
Assessment:
POD#1 Right hip Arnold
Overall doing/feeling well
Calf soft, nontender
Plan
.
Surgery / Date: Right hip Arnold Jun 13 (Nazanin)
DVT Prophylaxis: Aspirin
Activity:
Out of bed. WBAT RLE on walker
PT/OT, THPs x 6 weeks
Discharge Plan: Other (Appreciate CM)
Subjective
.
.:
Patient resting comfortably. Moderate pain RLE, but overall feeling better
Vital Signs and Labs
.
Vital Signs and Labs:
Lab Results
05/31/25 06:48
05/31/25 06:48
Temp Pulse Resp BP Pulse Ox
98.8 F 82 16 143/83 96
05/31/25 07:15 05/31/25 07:15 05/31/25 07:15 05/31/25 07:15 05/31/25 07:15
PT 13.9 Sec (11.4-14.6) 05/28/25 13:28
INR 1.05 05/28/25 13:28
[2025-05-31] MEDS: COLACE 100 MG PO ×2 (09:05→19:41)
[2025-05-31] MEDS: FLOMAX 0.4 MG PO (09:05)
[2025-05-31] MEDS: ROXICODONE 5 MG PO (09:59)
--- NOTE | 2025-05-31 10:37 | W.PN.URO.CBU ---
Today's Communication / Plan
-
lynn pout repalce if no void
Assessment / Plan
-
difficult lynn voiding retention mild heatureia as expected leave lynn today remove once ambulatory milk of mag encourage fluids replac e lynn if distended or pve=r over 400
Diagnosis
-
Date of Service: May 31, 2025
-
Patient Diagnosis:
Post Op Day:
Patient Diagnosis:
Post Op Day:
Patient Diagnosis:
acute urinary retention in pt h/o bph difficult voiding
Post Op Day:
Subjective
-
ready for voiding trial some constipation
Objective
-
Vital Signs
Temp Pulse Resp BP Pulse Ox
98.8 F 82 16 143/83 96
05/31/25 07:15 05/31/25 07:15 05/31/25 07:15 05/31/25 07:15 05/31/25 07:15
Intake and Output
05/30/25 05/31/25 06/01/25
06:59 06:59 06:59
Intake Total 240 / 240 480 / 480 1680 / 1680
Output Total 1650 / 1650 525 / 525
Balance -1410 / -1410 -45 / -45 1680 / 1680
Intake:
Oral fluids 240 / 240 480 / 480 480 / 480
IV fluids (Total) 1200 / 1200
Output:
Urine, Lynn 1650 / 1650 525 / 525
Other:
How many times incontinent 1
SATURATED amount urine
Laboratory Results
05/31/25 06:48
05/31/25 06:48
Review of Systems
-
Abdomen/GI: Constipated
: Difficulty Voiding
Physical Exam
-
General - well developed, well nourished, no acute distress
Chest - clear bilaterally
Abdomen - soft, non-tender, positive bowel sounds, no CVAT, no incisional pain or distention
Genitalia - normal
Rectal - normal
Skin - warm & dry with no rash
Neuro - AOx3, no motor deficits
Extremities - no clubbing, no cyanosis, no edema
Incision - clean, dry
Dressing - clean, dry, intact
Counseling
-
lynn out replace prn retention
Care Review
Data Reviewed
Discussed with: Nursing
[2025-05-31] MEDS: MILK OF MAGNESIA 30 ML PO (11:09)
[2025-05-31] MEDS: MIRALAX 17 GRAMS PO (11:09)
[2025-05-31 11:10] VITALS: BP 122/74
[2025-05-31 11:43] VITALS: BP 122/74; BP 124/81; PULSE 96; O2SAT 96
[2025-05-31 15:35] VITALS: BP 125/61
[2025-05-31] MEDS: ASPIRIN 325 MG PO (18:12)
[2025-05-31] MEDS: MIRALAX PO (19:40)
[2025-05-31 23:55] VITALS: BP 156/77
[2025-06-01] MEDS: ZOFRAN 4 MG IV ×2 (00:50→09:28)
[2025-06-01] MEDS: TUMS CHEWABLE TABLET 400 MG PO (05:45)
[2025-06-01 07:00] VITALS: BP 158/91
[2025-06-01 07:32] LABS: Hematocrit 38.4 % (39.0-52.0); Hemoglobin 13.9 g/dL (13.0-18.0); Mean Corp Hgb Conc. 36.2 g/dL (33.0-37.0); Mean Corpuscular Volume 88.7 fL (80.0-94.0); Platelet Count 217 10^3/uL (130-400); Red Cell Dist. Width 12.2 % (11.5-14.5)
[2025-06-01 07:53] LABS: Blood Urea Nitrogen 26 mg/dl (9-20); Calcium 8.9 mg/dl (8.4-10.2); Carbon Dioxide 25 mmol/L (22-30); Chloride 104 mmol/L (98-107); Estimated Creatinine Clearance 84 ml/min; Glucose 153 mg/dl (70-99); Potassium 4.4 mmol/L (3.5-5.1); Sodium 135 mmol/L (135-145); eGFR > 60.00
[2025-06-01] MEDS: FLOMAX 0.4 MG PO (08:44)
[2025-06-01] MEDS: ASPIRIN 325 MG PO (08:44)
[2025-06-01] MEDS: COLACE 100 MG PO (08:45)
[2025-06-01] MEDS: MILK OF MAGNESIA PO (08:46)
[2025-06-01] MEDS: MIRALAX PO (08:46)
--- NOTE | 2025-06-01 09:30 | W.PN.HOSP.TC ---
Today's Communication/Plan
-
Check ECG
Start as needed male
Discharge to SNF if ECG unremarkable
OP follow-up with Ortho and urology
Assessment / Plan
Assessment / Plan
In summary, 79 yo M PMH BPH presenting after mechanical fall and found to have right femoral neck fracture s/p hemiarthroplasty
#Right femoral neck fracture s/p hemiarthroplasty
- mechanical fall, and reports rose-episodic dizziness, he specifies that it is 'room-spinning'
- hx of fall 1 year ago with wrist fracture for similar reason - this is suspicious for vertigo
- he experiences pain with R leg movement, and has no focal neurological deficits
- orthopedics performed arthroplasty, 05/30; now WBAT and plan for aspirin full dose for 1 month
- pain regimen from hydromorphone to oxycodone in preparation for discharge tomorrow based on PT/OT evaluation, 05/31
#Irregular cardiac rhythm
- On exam today, seems to have some irregularity, difficult to differentiate PVCs from AF/AFL
- Will order ECG for further assessment, consider cardiology consult based off of findings
- Consider AVN blockade and anticoagulant if AF present
- Consider telemetry upgrade
#Concern for Vertigo
- patient reported room-spinning dizziness before mechanical fall
- PT/OT consulted
#BPH with acute urine retention
- reportedly noncompliant with finasteride
- urology consulted after difficult lynn, who then placed lynn which is now removed
- tamsulosin ordered daily, consider resumption of finasteride though unclear how much benefit this would have at this point
- lynn removed this morning, trial void then discharge planned for tomorrow, 05/31
- Plan for OP urology
#Constipation
- Continue with bowel regimen, consider as needed bisacodyl suppository and enema
Full code
Full dose aspirin x 4 weeks
Regular diet
Anticipated Discharge: Today
Subjective/Interval History
-
Date of Service: June 01, 2025
Seen and examined at the bedside. No acute events reported overnight. AFVSS this morning
Patient denies any new complaints today. Hip pain well-controlled, denies chest pain, dyspnea, fevers or chills
Hemoglobin and renal function stable as are remainder of labs
Objective Data
-
Labs:
Laboratory Results
06/01/25
07:16
WBC 8.3
Hgb 13.9
Hct 38.4 L
Plt Count 217
Sodium 135
Potassium 4.4
Chloride 104
Carbon Dioxide 25
BUN 26 H
Creatinine 0.9
Glucose 153 H
Calcium 8.9
Vital Signs:
Vital Signs
Temp Pulse Resp BP Pulse Ox
97.9 F 93 16 158/91 99
06/01/25 07:00 06/01/25 07:00 06/01/25 07:00 06/01/25 07:00 06/01/25 07:00
I&O
05/31/25 06/01/25 06/02/25
06:59 06:59 06:59
Intake Total 480 / 480 2640 / 2640
Output Total 525 / 525 400 / 400
Balance -45 / -45 2240 / 2240
Review of Systems
-
History Source: Patient
All other systems: Reviewed and negative
Physical Exam
-
General: Well Developed, No Apparent Distress and Obese
HEENT: Normocephalic, Atraumatic, Moist Mucous Membranes and Anicteric
Respiratory: Clear to Auscultation and Non Labored Respirations; Negative Accessory Resp Muscle Use
Cardiac: S1/S2 and Irregular Rhythm; Negative Murmur, Rub or Gallop
GI: Soft, Nontender, Nondistended and Normal Bowel Sounds
Musculoskeletal: No Clubbing, No Cyanosis and No Edema
Skin: Warm and Dry; Negative Rash
Neuro: AO x 3, Nonfocal/Grossly Intact and Central Nerve's Intact
Psych: Calm
Data Reviewed
-
Labs: Labs Reviewed by me and Discussed with Patient
[2025-06-01 10:17] VITALS: BP 160/100; BP 168/90; PULSE 89; O2SAT 94
[2025-06-01 10:46] VITALS: BP 160/105; BP 168/90; PULSE 94
[2025-06-01] MEDS: ROXICODONE PO (11:16)
--- NOTE | 2025-06-01 12:09 | W.PN.ORTHO ---
Today's Communication / Plan
-
POD #2 s/p right hip hemiarthroplasty
- Appreciate the primary team, continue treatment
- Continue WBAT RLE on walker/assistance
- PT/OT, THPs x 6 weeks
- ASA 325mg daily x 4 weeks for DVT ppx
- Dressing to remain 7-10 days
- Pain control
- Outpatient Ortho follow-up in 4 weeks for xrays and exam
- D/c to SNF when medically stable. Ortho to sign off.
Assessment
.
Distal Motor Intact: Yes
Dressing:
Clean, dry and intact.
Assessment:
POD #2 s/p right hip hemiarthroplasty
- Appreciate the primary team, continue treatment
- Continue WBAT RLE on walker/assistance
- PT/OT, THPs x 6 weeks
- ASA 325mg daily x 4 weeks for DVT ppx
- Dressing to remain 7-10 days
- Pain control
- Outpatient Ortho follow-up in 4 weeks for xrays and exam
- D/c to SNF when medically stable. Ortho to sign off.
Plan
.
Surgery / Date: Right hip Arnold Jun 13 (Nazanin)
DVT Prophylaxis: Aspirin
Activity:
Out of bed.
PT/OT
Discharge Plan: SNF
Subjective
.
.:
Patient doing PT upon my arrival. Reports discomfort in his right hip, but able to get up and ambulate with walker. Having some nausea this morning.
Vital Signs and Labs
.
Vital Signs and Labs:
Lab Results
06/01/25 07:16
06/01/25 07:16
Temp Pulse Resp BP Pulse Ox
97.9 F 93 16 158/91 99
06/01/25 07:00 06/01/25 07:00 06/01/25 07:00 06/01/25 07:00 06/01/25 07:00
PT 13.9 Sec (11.4-14.6) 05/28/25 13:28
INR 1.05 05/28/25 13:28
Physical Exam
-
Right hip: Dressing is clean, dry, and intact. Mild sanguinous drainage noted. Mild diffuse swelling of hip. Gentle range of motion without pain. Calf soft and nontender palpation. Antalgic gait, using rolling walker to sustain relation.
Neurovascular intact distally.
--- NOTE | 2025-06-01 13:22 | W.DCSUMMARY ---
Discharge Summary
Discharge Data
Date of Admission: 05/28/25
Date of Discharge: 06/01/25
Total time spent discharging patient (in min): 36
-
Pending Results: No
Hospital Course
Discharging provider: Zackary Amin DO
Discharge disposition: [facility]
Primary discharge diagnoses:
Right femoral neck fracture s/p right hip hemiarthroplasty
Urine retention with successful trial of void
Premature ventricular complexes
Mild postoperative blood loss
Constipation
Mechanical fall for syncope
Chronic discharge diagnoses:
BPH not on medications
Hospital course:
79-year-old male that presented to the hospital after getting dizzy and falling in his driveway onto his right hip. Upon arrival had x-ray imaging that demonstrated right femoral neck fracture and was evaluated by orthopedics who performed right
hip hemiarthroplasty on 05/30/2025. During hospitalization he did have urine retention of 800 mL that required placement of Edwards catheter by urologist. Was started on tamsulosin and Edwards catheter was removed on postoperative day 1 with
successful trial of void. Was started on bowel regimen for constipation which resolved while in the hospital, patient with large bowel movement followed by subsequent. Unclear nature of his fall, did not have any dizziness or vertiginous symptoms
in the hospital. On exam he did have some irregularity to cardiac auscultation however echocardiogram demonstrated intermittent PVCs. Following his procedure he was started on aspirin 325 mg daily for DVT prophylaxis. Was evaluated by physical
therapy who recommended short-term rehab, arranged for rehab at [facility] by case management. Recommend repeat labs in 5 days and rehab. Referral provided for urology, cardiology, and orthopedics. Should have consideration for loop recorder
to assess for cardiac causes of dizziness. Can consider beta-blockade with cardiology to reduce PVC burden, patient was highly resistant to medications while in the hospital, even declining analgesics prior to his surgical intervention.
Consultants:
Orthopedist � Stephan Back MD
Urologist � Chas Mariscal MD
Pertinent imaging findings: N/A
Pertinent procedural findings:
Right hip hemiarthroplasty (05/30/2025)
OPERATIVE FINDINGS: Right femoral neck fracture.
IMPLANTS: [employer] size 13 stem, posterior head, 53 mm bipolar shell.
Follow-up:
Family doctor within 1 week
Urologist within 1 to 2 weeks
Orthopedist in 2 weeks for follow-up and repeat imaging
[facility] Consultant within 2 weeks for consideration of loop recorder
Repeat BMP, magnesium level, and CBC with differential in 5 to 7 days
Discharge Plan
-
Patient Disposition: [facility]/SNF
Discharge Diagnosis/Procedures: Right femoral neck fracture s/p hemiarthroplasty
Constipation
Urine retention with successful trial of void
Premature ventricular complexes
Condition: Fair
Diet: As tolerated
Activity: With assistance
Driving Restrictions: No driving
Bathing Restrictions: None
Blood Work: BMP, magnesium level, phosphorus level, CBC with differential in 5 to 7 days
Others Tests: Repeat imaging with orthopedist
Other Services: PT
Referrals:
[facility] [Outside, [facility]] - in less than 1 week
Osbaldo Carreon MD [Active, Cardiology] - in two weeks
Phil Mariscal MD [Active, Urology] - in three to four weeks
Javed Mcghee MD [Active, Orthopedics] - in two weeks
Chris Erazo MD, Resident [[facility] Resident Year2, General]
Additional Discharge Medication Instructions: You should take aspirin 325mg daily for 30 days.
You should take tamsulosin 0.4mg PO daily
You are also provided a bowel regimen below which includes several medications, can de-escalate bowel regimen as needed
Scheduled: docusate sodium 100mg PO BID; milk of magnesia PO daily; miralax PO BID
As needed: bisacodyl suppository every 2 days as needed; senna plus tablet PO BID as needed
Please follow-up with urology in 3-4 weeks
Please follow-up with orthopedic surgery as well.
Please note that you should establish care with a primary care doctor to further discuss your potential dizziness/vertiginous symptoms. Please try to do so within 1 week from discharge.
Prescriptions:
New
aspirin 325 mg Tablet
325 mg PO DAILY 30 Days Qty: 30 0RF
sennosides-docusate sodium [Senna Plus] 8.6-50 mg Tablet
1 tab PO BIDPRN PRN (Reason: constipation) Qty: 30 0RF
magnesium hydroxide [Milk of Magnesia] 400 mg/5 mL Suspension
30 ml PO DAILY Qty: 3780 0RF
tamsulosin 0.4 mg Capsule
0.4 mg PO DAILY Qty: 30 0RF
bisacodyl 10 mg Suppository
10 mg KY [id number] PRN (Reason: constipation) Qty: 30 0RF
docusate sodium 100 mg Capsule
100 mg PO BID Qty: 60 0RF
polyethylene glycol 3350 17 gram Powder In Packet
17 g PO BID Qty: 30 0RF
Discharge Orders:
Discharge Patient (As Directed); Ordered 06/01/25
Ordered By: Zackary Amin
Discharge Date and Time
Print Language: TOGOLESE
--- NOTE | 2025-06-01 13:31 | CM ---
Patient has been medically cleared for discharge to [facility] for ch[facility] and rehab services. Ambulance transport to be arranged.
notified.
Nurse to Nurse Report #: [phone]
Fax #: [phone]
[2025-06-01 15:00] VITALS: BP 139/83
== END 2025-06-01 16:50 | DRG 522 ==
LOC: 2 SOUTH 16:22
PROVIDERS: Emergency Medicine; Student in an Organized Health Care Education/Training Program; ADMITTING PHYSICIAN Internal Medicine; ATTENDING PHYSICIAN Internal Medicine; CONSULT PHYSICIAN Specialist; EMERGENCY PHYSICIAN Emergency Medicine; OTHER PHYSICIAN Orthopaedic Surgery
PROC: 0SRR0J9 Replacement of Right Hip Joint, Femoral Surface with Synthetic Substitute, Cemented, Open Approach (ICD-10-PCS; 2025-05-30)
DX: S72.001A Fracture of unspecified part of neck of right femur, initial encounter for closed fracture (principal); W01.0XXA Fall on same level from slipping, tripping and stumbling without subsequent striking against object, initial encounter; I49.3 Ventricular premature depolarization; K59.00 Constipation, unspecified; Z74.01 Bed confinement status; Z91.199 Patient's noncompliance with other medical treatment and regimen due to unspecified reason
CPT/HCPCS: 73502; 80048; 80053; 85025; 85027; 85610; 85730; 86850; 86900; 86901; 93005; 97116; 97162; 97166; 97530; 97535; 99284; C1713; C1776

== ENCOUNTER → 2025-06-07 16:43 | Outpatient (REF) | payer MEDICARE, OTHER, SELFPAY ==
[2025-06-07 17:39] LABS: Hematocrit 40.9 % (39.0-52.0); Hemoglobin 13.8 g/dL (13.0-18.0); Mean Corp Hgb Conc. 33.7 g/dL (33.0-37.0); Mean Corpuscular Volume 93.6 fL (80.0-94.0); Nucleated Red Blood Cells % 0 % (-); Platelet Count 353 10^3/uL (130-400); Red Cell Dist. Width 13.3 % (11.5-14.5)
[2025-06-07 17:40] LABS: ALT (SGPT) 74 U/L (0-50); AST (SGOT) 55 U/L (17-59); Albumin 3.5 g/dl (3.5-5.0); Alkaline Phosphatase 86 U/L (38-126); Blood Urea Nitrogen 18 mg/dl (9-20); Calcium 9.1 mg/dl (8.4-10.2); Carbon Dioxide 29 mmol/L (22-30); Chloride 100 mmol/L (98-107); Glucose 107 mg/dl (70-99); Potassium 4.4 mmol/L (3.5-5.1); Sodium 136 mmol/L (135-145); Total Protein 6.0 g/dl (6.3-8.2); eGFR > 60.00
== END ==
LOC: CLAB 16:43
PROVIDERS: ATTENDING PHYSICIAN Physician Assistant Medical
DX: D62 Acute posthemorrhagic anemia (principal); Z76.89 Persons encountering health services in other specified circumstances; N40.0 Benign prostatic hyperplasia without lower urinary tract symptoms
CPT/HCPCS: 36415; 80053; 85025

== ENCOUNTER → 2025-06-10 15:54 | Outpatient (REF) | payer MEDICARE, OTHER, SELFPAY | LOC: CLAB 15:54 | PROVIDERS: ATTENDING PHYSICIAN Physician Assistant Medical | DX: R60.0 Localized edema (principal) | CPT/HCPCS: 36415; 83880 ==